=== PATIENT | female | born 1995 | race Caucasian/White ===

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

== ENCOUNTER 2017-01-02 23:57 | Outpatient (CLI) | payer OTHER ==
[~2017-01-02] VITALS: Ht 154.9 cm; Wt 66.1 kg
[2017-01-03 00:31] VITALS: BP 121/70; PULSE 89; RESP 18
[2017-01-03] MEDS ORDERED: PRENAT PO (00:55)
--- NOTE | 2017-01-03 03:59 | RADRPT ---
PROCEDURE: US OB ESTIMATED WEIGHT. CLINICAL INDICATION: Pain. TECHNIQUE: Multiple sonographic images of the pelvis were obtained. The images were reviewed on a PACS workstation. COMPARISON: No pertinent prior examinations were submitted for comparison. FINDINGS: There is a single live intrauterine gestation. Cardiac activity is present with 154 beats per minut e. There is a vertex presentation. Measurements were made in order to determine age. The results are as follows: BPD =9.5 cm = 38 weeks 6 days HC =33.9 cm = 38 weeks 6 days AC =36 cm = 39 weeks 6 days FL =7.5 cm = 38 weeks 3 days Estimated gestational age of approximately 39 weeks 0 days. The estimated date of delivery is 01/10/2017. The EFW = 3761 g . 83% This examination was not performed for anatomy. The placenta is anterior. There is no evidence for an abruption or placenta previa. IMPRESSION: EFW = 3761 g. RPTAT: HIKT .Dirk Taylor MD, MD Date Time Electronically viewed and signed by .Dirk Taylor MD, on 01/03/2017 03:58 .T/
--- NOTE | 2017-01-03 03:59 | RADRPT ---
PROCEDURE: US OB biophysical profile. CLINICAL INDICATION: decreased movements TECHNIQUE: Multiple sonographic images of the pelvis were obtained. The images were reviewed on a PACS workstation. COMPARISON: No pertinent prior examinations were submitted for comparison. FINDINGS: There is a single viable intrauterine gestation. Cardiac activity is present with 159 beats per min [place]. There is a vertex presentation. The placenta is anterior. There is a normal amount of amniotic fluid with an REJI = 12.6 cm. Biophysical profile: movement 2/2 tone 2/2. breathing 2/2 REJI 2/2 Total 12/18 IMPRESSION: Normal biophysical profile. RPTAT: HIKT . .Dirk Taylor MD, Date Time Electronically viewed and signed by .Dirk Taylor MD, on 01/03/2017 03:59 .T/
--- NOTE | 2017-01-03 06:39 | PN ---
Triage Information Date/Time January 02 2017 Reason for visit: Uterine contractions Weeks of Gestation 38 weeks and 4 day /Para 2 para1 Diabetes: none Hypertention: none Additional information 21-year-old with IUP at 38 weeks and 4 days with complaint uterine contractions. She denies any leaking of fluid, vaginal bleeding or decreased movement. Objective Vital Signs Date Time Temp Pulse Resp B/P Pulse Ox O2 Delivery O2 Flow Rate FiO2 01/03/17 00:31 97.9 89 18 121/70 Room Air Heart Rate: 130's Contractions: 6-10 Minutes Apart Exam General appearance: Alert and oriented 4. Patient does not appear to be in any acute distress. Abdomen: Soft, gravid, fundal height consistent with gestational age. Nontender nose, no rebound tenderness, no guarding, NST: Category 1 Sterile vaginal examination 2-3/60/-3, vertex Repeat examination after 45 hours still shows 3/70/-3 Minimal cervical change REJI: 12.6 normal EFW: 83% Results/Medications Imaging Results PROCEDURE: US OB biophysical profile. CLINICAL INDICATION: decreased movements TECHNIQUE: Multiple sonographic images of the pelvis were obtained. The images were reviewed on a PACS workstation. COMPARISON: No pertinent prior examinations were submitted for comparison. FINDINGS: There is a single viable intrauterine gestation. Cardiac activity is present with 159 beats per minute. There is a vertex presentation. The placenta is anterior. There is a normal amount of amniotic fluid with an REJI = 12.6 cm. Biophysical profile: movement 2/2 tone 2/2. breathing 2/2 REJI 2/2 Total 12/18 IMPRESSION: Normal biophysical profile. RPTAT: HIKT . PROCEDURE: US OB ESTIMATED WEIGHT. CLINICAL INDICATION: Pain. TECHNIQUE: Multiple sonographic images of the pelvis were obtained. The images were reviewed on a PACS workstation. COMPARISON: No pertinent prior examinations were submitted for comparison. FINDINGS: There is a single live intrauterine gestation. Cardiac activity is present with 154 beats per minute. There is a vertex presentation. Measurements were made in order to determine age. The results are as follows: BPD = 9.5 cm = 38 weeks 6 days HC = 33.9 cm = 38 weeks 6 days AC = 36 cm = 39 weeks 6 days FL = 7.5 cm = 38 weeks 3 days Estimated gestational age of approximately 39 weeks 0 days. The estimated date of delivery is 01/10/2017. The EFW = 3761 g . 83% This examination was not performed for anatomy. The placenta is anterior. There is no evidence for an abruption or placenta previa. IMPRESSION: EFW = 3761 g. RPTAT: HIKT Disposition: Discharge Assessment/Plan IUP at 38 weeks and 4 days Uterine contraction Minimal cervical change noted Patient was comfortable after observation False labor versus early labor heart rate reassuring Patient will be discharged home with a strict labor precaution and kick count If contractions return and progressively increase in intensity return to triage back kick count and follow-up with OB office within 24 hours recommended Patient verbalized understanding. All questions were answered. JUMA PATEL MD Jan 03, 2017 06:39
--- NOTE | 2017-01-03 07:41 | TRIAGE ---
OB Triage Datetime Report Generated by CPN: 01/03/2017 07:41 Datetime: 01/03/2017 01:30 Stage of : OB Triage Datetime: 01/03/2017 01:08 Labor Evaluation Frequency: 5-8 Monitor Mode: External Duration (sec)2399: 60 Quality: Moderate Pattern: Normal: <= 5 Contractions in 10 Minutes Resting Tone [place]: Relaxed Heart Rate FHR Baseline Rate: 120 Monitor Mode: External US FHR Baseline Changes: No Baseline Change Variability: Moderate 6-25 bpm Accelerations: 15X15 Decelerations: None Category: Category I Vaginal Exam Dilatation (cms): 2.5 Effacement (%): 60 Station: -3 Exam By: Danae Raphael Membrane Status: Intact Vaginal Bleeding: None Cervix, Consistency: Soft Cervix, Position: Posterior Presentation 'A': Cephalic Datetime: 01/03/2017 00:20 Time of Arrival: 01/02/2017 23:52 EGA: 38.3 Arrived By: Wheelchair Arrived From: Home Chief Complaint: w/ c/o ucs. Denies hx problems this Movement: Present Contractions: Irregular Time Contractions Began: 01/02/2017 19:00 Contractions: q3-5 Rupture of Membranes: Denies Vaginal Bleeding: None Vaginal Discharge: Denies Recent Sexual Intercouse: Denies Abdominal Trauma: Not Applicable Patient Complaints: Contractions Time Provider Notified: 01/03/2017 01:30 Provider Notified: Dr Duque Initial Plan: EFM, SVE Datetime: 01/03/2017 00:18 Stage of : OB Triage Maternal Assessment Level of Consciousness: Fully Conscious Headache: Denies Blurred Vision: No Respiratory Effort: Unlabored Nausea/Vomiting: Denies RUQ Epigastric Pain: Denies Facial Edema: None Labor Evaluation Frequency: placed Monitor Mode: External Resting Tone [place]: Relaxed Heart Rate FHR Baseline Rate: 125 Monitor Mode: External US Category: Category I Pain Assessment Pain Scale: 7 Pain Presence: Intermittent Pain Type: Contraction Pain Location: Abdomen Datetime: 12/27/2016 06:12 Labor Evaluation Frequency: 3-10 Monitor Mode: External Duration (sec)2399: 50-90 Pattern: Normal: <= 5 Contractions in 10 Minutes Resting Tone [place]: Relaxed Heart Rate FHR Baseline Rate: 115 Monitor Mode: External US Variability: Moderate 6-25 bpm Accelerations: 15X15 Decelerations: None Category: Category I Datetime: 12/27/2016 05:30 Labor Evaluation Frequency: Irregular Monitor Mode: External Pattern: Normal: <= 5 Contractions in 10 Minutes Resting Tone [place]: Relaxed Heart Rate FHR Baseline Rate: 110 Monitor Mode: External US Variability: Moderate 6-25 bpm Accelerations: 15X15 Decelerations: None Category: Category I Datetime: 12/27/2016 04:30 Labor Evaluation Frequency: 2-9 Monitor Mode: External Duration (sec)2399: 50-80 Pattern: Normal: <= 5 Contractions in 10 Minutes Resting Tone [place]: Relaxed Heart Rate FHR Baseline Rate: 120 Monitor Mode: External US Variability: Moderate 6-25 bpm Accelerations: 15X15 Decelerations: None Category: Category I Datetime: 12/26/2016 23:21 EGA: 37.3 Datetime: 12/26/2016 23:15 Fall Risk Assessment Fall Score: 0 Fall Risk Score Definition: No Risk: No action required
== END 2017-01-03 05:00 | disposition home or self-care (01) ==
LOC: OBT 23:57 → L-D 01-03 → OBT 01-03 05:00
PROVIDERS: ATTEND Obstetrics & Gynecology
DX: O62.9 Abnormality of forces of labor, unspecified (principal); Z3A.38 38 weeks gestation of pregnancy
CPT/HCPCS: 76815; 76818; Z7500; G0463

== ENCOUNTER 2017-01-10 11:10 | Inpatient (IN) | payer OTHER ==
[~2017-01-10] VITALS: Ht 154.9 cm; Wt 66.4 kg
[~2017-01-10 11:10] MED LIST changes: -IBUP-1542 PO; -NO MEDS; +PRENAT PO
[2017-01-10 11:57] VITALS: Ht 154.9 cm; Wt 66.4 kg
[2017-01-10 11:58] VITALS: BP 122/68; PULSE 69
[2017-01-10] MEDS ORDERED: CARBOPROST 250 MCG INJ IM PRN ×2 (12:30→22:00)
[2017-01-10] MEDS ORDERED: OXYTOCIN 30 UNITS/LR 500 ML IV PRN ×2 (12:30→22:00)
[2017-01-10] MEDS ORDERED: MISOPROSTOL 200 MCG TAB PR PRN ×2 (12:30→22:00)
[2017-01-10] MEDS ORDERED: LACTATED RINGER'S 1,000 ML IV PRN (12:30)
[2017-01-10] MEDS ORDERED: METHYLERGONOVINE 0.2 MG INJ IM PRN ×2 (12:30→22:00)
[2017-01-10] MEDS ORDERED: BUTORPHANOL 2 MG INJ IV PRN ×2 (12:30)
[2017-01-10] MEDS ORDERED: LIDOCAINE 1% (MPF) 30 ML INJ INJ PRN (12:30)
[2017-01-10] MEDS: LACTATED RINGER'S 1,000 ML IV SCH ×2 (13:26→15:55)
[2017-01-10] MEDS ORDERED: OXYTOCIN 30 UNITS/LR 500 ML IV SCH (13:30)
[2017-01-10 13:45] LABS: ABNORMAL IP MESSAGE 1; BASOPHILS % 0.3 % (0.0-2.0); EOSINOPHILS % 0.4 % (0.0-7.0); HEMATOCRIT 28.5 % (37.0-47.0); HEMOGLOBIN 8.3 g/dl (12.0-16.0); LYMPHOCYTES # 2.7 10^3/ul (0.8-2.9); LYMPHOCYTES % 25.5 % (18.0-55.0); MEAN CORPUSCULAR HEMOGLOBIN 18.1 pg (29.0-33.0); MEAN CORPUSCULAR HGB CONC 29.1 g/dl (32.0-37.0); MEAN CORPUSCULAR VOLUME 62.1 fl (72.0-104.0); MONOCYTE # 0.5 10^3/ul (0.3-0.9); MONOCYTES % 5.1 % (0.0-13.0); NEUTROPHILS % 68.1 % (30.0-74.0); NUCLEATED RED BLOOD CELLS% 0.2 /100WBC (0.0-0.0); PLATELET COUNT 129 10^3/UL (140-415); RED BLOOD COUNT 4.59 10^6/ul (4.20-5.40); RED CELL DISTRIBUTION WIDTH 20.2 % (11.5-14.5); WHITE BLOOD COUNT 10.4 10^3/ul (4.8-10.8)
[2017-01-10 14:07] LABS: POSITIVE DIFF @See below
[2017-01-10 14:08] LABS: INR 0.95; PROTIME 12.7 Sec (12.2-14.2)
[2017-01-10 14:09] LABS: PARTIAL THROMBOPLASTIN TIME 28.1 Sec (25.0-35.0)
[2017-01-10] MEDS ORDERED: FENTAnyl 2MCG/ML-ROPIV 0.2% 100 ML ONE (16:39)
--- NOTE | 2017-01-10 17:27 | HP ---
Date/Time of Note Date/Time of Note DATE: 01/10/17 TIME: 17:26 OB - History Hx of Present Free Text/Dictation at term in labor Care: Good Care Ultrasounds: Normal mid trimester US Obstetrical Complications: None Medical Complications: None Past Family/Social History * Past Medical, Surgical, Family and Obstetric Histories reviewed from chart. OB Admission Exam Vital Signs Vital Signs Vital Signs Date Time Temp Pulse Resp B/P Pulse Ox O2 Delivery O2 Flow Rate FiO2 01/10/17 11:58 98.3 69 122/68 Physical Exam HEENT: WNL Heart: Rhythm Normal Lungs: Clear, Equal Abdomen: WNL Extremities: Normal Reflexes: Normal Cervical Dilatation: 10cm Effacement: 100% Membranes: Ruptured Amniotic Fluid: Clear Heart Rate: 130's Accelerations: No Accelerations Decelerations: No Decelerations Intensity: Moderate Last 72 hours Lab Results CBC & BMP 01/10/17 12:55 OB Assessment/Plan Reason for admission: active labor Plan: Expectant Management MARIVEL PETER MD Jan 10, 2017 17:27
--- NOTE | 2017-01-10 17:28 | LDN ---
Date/Time of Note Date/Time of Note DATE: 01/10/17 TIME: 17:27 Delivery Summary term preg nsd Placenta Delivered: Spontaneously Meconium: none Anesthesia type: Epidural Estimated blood loss: 350 Sponge & Needle done & correct: Yes All needle counts correct: Yes Any foreign bodies felt in the: No Problems: MARIVEL PETER MD Jan 10, 2017 17:28
[2017-01-10] MEDS ORDERED: OXYTOCIN 30 UNITS/LR 500 ML IVPB ONE (18:00)
[2017-01-10] MEDS ORDERED: IBUPROFEN 600 MG TAB PO STA (18:03)
[2017-01-10] MEDS ORDERED: IBUPROFEN 600 MG TAB ONE (18:20)
[2017-01-10 20:20] VITALS: BP 107/64; PULSE 62; RESP 17
[2017-01-10] MEDS: LACTATED RINGER'S 1,000 ML IV* SCH (21:49)
[2017-01-10] MEDS ORDERED: LANOLIN 7 GM TUBE TOP PRN (22:00)
[2017-01-10] MEDS ORDERED: ACETAMINOPHEN 325 MG TAB PO PRN (22:00)
[2017-01-10] MEDS ORDERED: SENNA/DOCUSATE NA (8.6MG/50MG) TAB PO PRN (22:00)
[2017-01-10] MEDS ORDERED: ZOLPIDEM 5 MG TAB PO PRN (22:00)
[2017-01-10] MEDS ORDERED: WITCH HAZEL/GLYCERIN PAD PR PRN (22:00)
[2017-01-10] MEDS ORDERED: DIPHENHYDRAMINE 25 MG CAP PO PRN (22:00)
[2017-01-10] MEDS ORDERED: HYDROCODONE/APAP (5/325) TAB PO PRN (22:00)
[2017-01-10] MEDS ORDERED: BENZOCAINE 20% 56 ML SPRAY TOP PRN (22:00)
[2017-01-10] MEDS ORDERED: MAGNESIUM HYDROXIDE 30ML CUP PO PRN (22:00)
[2017-01-10] MEDS: OXYTOCIN 30 UNITS/LR 500 ML IV SCH (23:49)
[2017-01-10 23:51] VITALS: BP 105/51; PULSE 63; RESP 19
[2017-01-10] MEDS: IBUPROFEN 800 MG TAB PO SCH (23:51)
[2017-01-11] MEDS: OXYTOCIN 30 UNITS/LR 500 ML IV SCH (03:28)
[2017-01-11 04:00] VITALS: BP 110/53; PULSE 73; RESP 19
[2017-01-11] MEDS: IBUPROFEN 800 MG TAB PO SCH ×4 (05:41→23:40)
[2017-01-11] MEDS: LACTATED RINGER'S 1,000 ML IV* SCH ×2 (05:49→13:49)
[2017-01-11 08:00] VITALS: BP 99/54; PULSE 71; RESP 18
[2017-01-11 09:14] LABS: BASOPHIL # 0.1 10^3/ul (0.0-0.1); BASOPHILS % 0.3 % (0.0-2.0); EOSINOPHILS # 0.1 10^3/ul (0.0-0.5); EOSINOPHILS % 0.4 % (0.0-7.0); HEMATOCRIT 25.8 % (37.0-47.0); HEMOGLOBIN 7.5 g/dl (12.0-16.0); LYMPHOCYTES # 4.5 10^3/ul (0.8-2.9); MEAN CORPUSCULAR HEMOGLOBIN 18.2 pg (29.0-33.0); MEAN CORPUSCULAR HGB CONC 29.1 g/dl (32.0-37.0); MEAN CORPUSCULAR VOLUME 62.8 fl (72.0-104.0); MONOCYTES % 5.7 % (0.0-13.0); NEUTROPHILS % 66.9 % (30.0-74.0); NUCLEATED RED BLOOD CELLS% 0.2 /100WBC (0.0-0.0); PLATELET COUNT 156 10^3/UL (140-415); RED BLOOD COUNT 4.11 10^6/ul (4.20-5.40); RED CELL DISTRIBUTION WIDTH 20.4 % (11.5-14.5); WHITE BLOOD COUNT 17.3 10^3/ul (4.8-10.8)
[2017-01-11] MEDS: FERROUS GLUCONATE (EC) 325 MG TAB PO SCH ×2 (13:17→21:12)
[2017-01-11 16:00] VITALS: BP 101/52; PULSE 62; RESP 18
[2017-01-11 20:00] VITALS: BP 102/52; PULSE 79; RESP 20
--- NOTE | 2017-01-11 23:39 | DS ---
Date/Time of Note Date/Time of Note DATE: 01/11/17 TIME: 23:39 Discharge Summary Admission/Discharge Info Admit Date/Time Jan 10, 2017 at 12:10 Discharge Date/Time Discharge Diagnosis TERM PREG Patient Condition: Good Hospital Course UNREMARKABLE Home Meds Reported Medications Multivit/Min/Fol Ac/Iron/Pren* ( S*) 1 Tab Tab, 1 TAB PO DAILY, TAB 01/03/17 Primary Care Provider Not On Staff Doctor Pending Labs Laboratory Tests Test 01/11/17 08:15 White Blood Count 17.310^3/ul (4.8-10.8) Red Blood Count 4.1110^6/ul (4.20-5.40) Hemoglobin 7.5g/dl (12.0-16.0) Hematocrit 25.8% (37.0-47.0) Mean Corpuscular Volume 62.8fl (72.0-104.0) Mean Corpuscular Hemoglobin 18.2pg (29.0-33.0) Mean Corpuscular Hemoglobin Concent 29.1g/dl (32.0-37.0) Red Cell Distribution Width 20.4% (11.5-14.5) Platelet Count 99630^3/UL (140-415) Mean Platelet Volume fl (7.4-10.4) Neutrophils % 66.9% (30.0-74.0) Lymphocytes % 26.0% (18.0-55.0) Monocytes % 5.7% (0.0-13.0) Eosinophils % 0.4% (0.0-7.0) Basophils % 0.3% (0.0-2.0) Nucleated Red Blood Cells % 0.2/100WBC (0.0-0.0) Neutrophils # (Manual) 11.610^3/ul (1.7-7.5) Lymphocytes # 4.510^3/ul (0.8-2.9) Monocytes # 1.010^3/ul (0.3-0.9) Eosinophils # 0.110^3/ul (0.0-0.5) Basophils # 0.110^3/ul (0.0-0.1) Nucleated Red Blood Cells # 0.010^3/ul (0.0-0.0) MARIVEL PETER MD Jan 11, 2017 23:39
[2017-01-12] MEDS: IBUPROFEN 800 MG TAB PO SCH ×2 (05:28→12:59)
[2017-01-12 08:20] VITALS: BP 110/56; PULSE 75; RESP 19
[2017-01-12] MEDS ORDERED: VARICELLA VACCINE LIVE/PF 1,350 UNIT/0.5 ML ML SC* ONE (09:00)
[2017-01-12] MEDS ORDERED: DIPHTH/TET/ACEL PERTUSS (ADULT) 0.5 ML VIAL IM* ONE (09:00)
[2017-01-12] MEDS ORDERED: MEASLES,MUMPS,RUBELLA VACCINE INJ SC* ONE (09:00)
[2017-01-12] MEDS: FERROUS GLUCONATE (EC) 325 MG TAB PO SCH ×2 (09:43→12:59)
--- NOTE | 2017-01-12 12:57 | DS ---
Date/Time of Note Date/Time of Note DATE: 01/12/17 TIME: 12:54 Obstetrical Discharge Record Final Diagnosis Final Diagnosis: Term delivered Vaginal Delivery Obstetrical Delivery: Spontaneous Complications Complications: less than 7 at 5 mins Condition on Discharge Physical Assessment Voiding: Yes Bowel Movement: Yes Breast: Soft, non-tender Fundus: Firm Abdomen and Incision: Post C section day 2 Doing Well Afebrile Ambulatory Chest Clear Breasts are soft , Nipples are intact Abdomen is soft Fundus is firm Moderate amount of [place]chia Incision is clean ,No evidence of infection No calf tenderness No ankle edema New born is doing well, Breast feeding Current Medications Medications (Trade) Dose Ordered Sig/Rosy Route PRN Reason Start Time Stop Time Status Last Admin Dose Admin Lactated Ringer's (Lr) 1,000 ml @ 125 mls/hr Q8H IV 01/10/17 12:11 01/10/17 21:51 DC 01/10/17 15:55 Butorphanol Tartrate (Stadol) 1 mg Q2H PRN IV PAIN 01/10/17 12:30 01/10/17 21:51 DC Butorphanol Tartrate (Stadol) 2 mg Q2H PRN IV PAIN 01/10/17 12:30 01/10/17 21:51 DC 01/10/17 13:42 Lidocaine 30 ml 30 ml ONCE PRN INJ EPISIOTOMY/TEARING 01/10/17 12:30 01/10/17 21:51 DC Lactated Ringer's 1,000 ml @ 2,000 mls/hr Q30M PRN IV PRE-EPIDURAL BOLUS 01/10/17 12:30 01/10/17 21:51 DC 01/10/17 15:59 Oxytocin/Lactated Ringer's 500 ml @ 0 mls/hr ONCE PRN IV For Hemorrhage Management 01/10/17 12:30 01/10/17 21:51 DC Methylergonovine Maleate (Methergine) 0.2 mg ONCE PRN IM VAGINAL BLEEDING 01/10/17 12:30 01/10/17 21:51 DC Carboprost Tromethamine (Hemabate) 250 mcg ONCE PRN IM VAGINAL BLEEDING 01/10/17 12:30 01/10/17 21:51 DC Misoprostol 1000 mcg 1,000 mcg ONCE PRN MI VAGINAL BLEEDING 01/10/17 12:30 01/10/17 21:51 DC Oxytocin/Lactated Ringer's 500 ml @ 0 mls/hr TITRATE IV 01/10/17 13:30 01/10/17 21:51 DC 01/10/17 13:44 Fentanyl/ Ropivacaine 100 ml @ ud STK-MED ONCE .ROUTE 01/10/17 16:39 01/10/17 16:40 DC Ibuprofen 600 mg 600 mg ONCE STAT PO 01/10/17 18:03 01/10/17 18:26 DC 01/10/17 18:26 Oxytocin/Lactated Ringer's 500 ml @ 125 mls/hr ONCE ONCE IVPB 01/10/17 18:00 01/10/17 21:51 DC 01/10/17 18:28 Ibuprofen 600 mg 600 mg STK-MED ONCE .ROUTE 01/10/17 18:20 01/10/17 18:21 DC Oxytocin/Lactated Ringer's 500 ml @ 125 mls/hr Q4H IV 01/10/17 21:49 01/11/17 05:48 DC 01/11/17 03:28 Lactated Ringer's (Lr) 1,000 ml @ 125 mls/hr Q8H IV* 01/10/17 21:49 01/11/17 16:36 DC Ibuprofen (Motrin) 800 mg Q6 PO 01/11/17 00:00 01/12/17 05:28 Acetaminophen/ Hydrocodone Bitart ([place] (5/325)) 2 tab Q4H PRN PO PAIN LEVEL 6-10 01/10/17 22:00 Diphenhydramine HCl (Benadryl) 25 mg Q6H PRN PO PRURITUS 01/10/17 22:00 Zolpidem Tartrate (Ambien) 10 mg QHS PRN PO INSOMNIA 01/10/17 22:00 Senna/Docusate Sodium (Senokot-S) 1 tab BID PRN PO CONSTIPATION 01/10/17 22:00 Magnesium Hydroxide (Milk Of Mag) 30 ml Q12H PRN PO CONSTIPATION 01/10/17 22:00 Witch Mayte/ Glycerin (Tucks Pads) 1 pad BEDSIDE MEDICATION PRN MI HEMORRHOID/EPISIOTMY PAIN 01/10/17 22:00 01/10/17 23:43 Benzocaine (Dermoplast [place]) 1 spray BEDSIDE MEDICATION PRN TOP HEMORRHOID/EPISIOTMY PAIN 01/10/17 22:00 01/10/17 23:43 Lanolin (Avi-P-Leqjot) 1 applic BEDSIDE MEDICATION PRN TOP BEDSIDE FOR GRIFFIN TO NIPPLES 01/10/17 22:00 01/10/17 23:44 Measles/Mumps/ Rubella Vaccine Live (Mmr Ii Vaccine) 0.5 ml ONCE ONCE SC* 01/12/17 09:00 01/12/17 09:01 DC Diphtheria/ Tetanus/Acell Pertussis (Adacel) 0.5 ml ONCE ONCE IM* 01/12/17 09:00 01/12/17 09:01 DC Varicella Virus Vaccine Live (Varivax Vaccine With Diluent) 1,350 unit ONCE ONCE SC* 01/12/17 09:00 01/12/17 09:01 DC Acetaminophen 650 mg 650 mg Q4H PRN PO ELEVATED TEMPERATURE 01/10/17 22:00 Oxytocin/Lactated Ringer's 500 ml @ 0 mls/hr ONCE PRN IV For Hemorrhage Management 01/10/17 22:00 Methylergonovine Maleate (Methergine) 0.2 mg ONCE PRN IM VAGINAL BLEEDING 01/10/17 22:00 Carboprost Tromethamine (Hemabate) 250 mcg ONCE PRN IM VAGINAL BLEEDING 01/10/17 22:00 Misoprostol (Cytotec) 1,000 mcg ONCE PRN MI VAGINAL BLEEDING 01/10/17 22:00 Ferrous Gluconate (Fergon) 325 mg TID PO 01/11/17 13:00 01/12/17 09:43 New born is doing well, Breast feeding Calf Tenderness: No Patient Condition: Good LEELEE CORONA MD Jan 12, 2017 12:57 New born is doing well, Breast feeding Calf Tenderness: No Patient Condition: Good LEELEE CORONA MD Jan 12, 2017 12:57
== END 2017-01-12 16:10 | disposition home or self-care (01) | DRG 775 ==
LOC: OBT 11:10 → L-D 11:10 → OBT 12:10 → PP1 20:14
PROVIDERS: ADMIT Obstetrics & Gynecology; ATTEND Obstetrics & Gynecology
PROC: 10E0XZZ Delivery of Products of Conception, External Approach (ICD-10-PCS; principal; 2017-01-10)
PROC: 3E033VJ Introduction of Other Hormone into Peripheral Vein, Percutaneous Approach (ICD-10-PCS; 2017-01-10)
DX: O80 Encounter for full-term uncomplicated delivery (principal); Z37.0 Single live birth; Z3A.39 39 weeks gestation of pregnancy
CPT/HCPCS: 62319; 85025; 85610; 85730; 86592; 86900; 86901; 87340; 90715; 90716; G0463; J0595; J2590; J3010; J7120

== ENCOUNTER 2018-08-24 16:03 | Outpatient (CLI) | payer OTHER ==
[~2018-08-24] VITALS: Ht 154.9 cm; Wt 60.7 kg
[2018-08-24 16:26] VITALS: Ht 154.9 cm; Wt 60.7 kg
[2018-08-24 16:28] VITALS: BP 98/50; PULSE 80; RESP 18
--- NOTE | 2018-08-24 18:11 | PN ---
Triage Information Date/Time Reason for visit: Uterine contractions Weeks of Gestation 26+ /Para 3/2 Diabetes: none Hypertention: none Objective Vital Signs Date Temp Pulse Resp B/P (MAP) Pulse Ox O2 O2 Flow FiO2 Time Delivery Rate 08/24/18 98.0 80 18 98/50 (66) Room Air 16:28 Heart Rate: 140's Contractions: None Results/Medications Results 24 hrs Laboratory Tests Test 08/24/18 17:10 Urine Color YELLOW Urine Clarity SLIGHTLY CLOUDY A Urine pH 7.0 Urine Specific [place] 1.014 Urine Ketones NEGATIVE Urine Nitrite NEGATIVE Urine Bilirubin NEGATIVE Urine Urobilinogen NEGATIVE Urine Leukocyte Esterase 3+ H Urine Microscopic RBC 2 Urine Microscopic WBC 30 H Urine Squamous Epithelial Cells MODERATE Urine Bacteria FEW A Urine Hemoglobin NEGATIVE Urine Glucose NEGATIVE Urine Total Protein NEGATIVE Assessment/Plan CXL WNL labs reviewed Macrobid is given for UTI Precautions discussed Questions answered Follow up with provider LOGAN GIVENS M.D. Aug 24, 2018 18:11
--- NOTE | 2018-08-24 18:17 | TRIAGE ---
OB Triage Datetime Report Generated by CPN: 08/24/2018 18:17 Datetime: 08/24/2018 16:38 Time of Arrival: 08/24/2018 16:00 EGA: 26.1 Arrived By: Ambulatory Arrived From: Home Chief Complaint: FLU LIKE SYMPTOMS SINCE LAST NIGHT AT 2300 Movement: Present Rupture of Membranes: Denies Vaginal Bleeding: None Vaginal Discharge: Denies Recent Sexual Intercouse: Denies Abdominal Trauma: Not Applicable Patient Complaints: Other Provider Notified: BRITTANI Initial Plan: EFM,LEI PETER Datetime: 08/24/2018 16:35 Maternal Assessment Level of Consciousness: Fully Conscious DTR's/Clonus: DTRs 2+; No Clonus Headache: Denies Blurred Vision: No Respiratory Effort: Unlabored; Regular Rhythm; Equal Expansion Breath Sounds, Left: Clear and Equal Breath Sounds, Right: Clear and Equal Nausea/Vomiting: Denies RUQ Epigastric Pain: Denies Facial Edema: None Temperature Route: Axillary Fall Risk Assessment History of Falling: (0) No Secondary Diagnosis: (0) No Ambulatory Aid: (0) Bedrest/Nurse Assist IV Therapy: (0) No Gait: (0) Normal/Bedrest/Immobile Mental Status: (0) Oriented to Own Ability Fall Score: 0 Fall Risk Score Definition: No Risk: No action required Datetime: 08/24/2018 16:17 Maternal Assessment Level of Consciousness: Fully Conscious DTR's/Clonus: DTRs 2+ Headache: Denies Blurred Vision: No RUQ Epigastric Pain: Denies Facial Edema: None Labor Evaluation Frequency: NONE Pattern: Normal: <= 5 Contractions in 10 Minutes Heart Rate FHR Baseline Rate: 135 Monitor Mode: External US FHR Baseline Changes: No Baseline Change Variability: Moderate 6-25 bpm Accelerations: 15X15 Decelerations: None Category: Category I Pain Assessment Pain Scale: 0 Pain Presence: None/Denies Pain Type: N/A Pain Goal: 0 Vaginal Exam Membrane Status: Intact
== END 2018-08-24 18:15 | disposition home or self-care (01) ==
LOC: OBT 16:03 → L-D 16:07 → OBT 18:15
PROVIDERS: ATTEND Obstetrics & Gynecology
DX: O23.42 Unspecified infection of urinary tract in pregnancy, second trimester (principal); O62.9 Abnormality of forces of labor, unspecified; Z3A.26 26 weeks gestation of pregnancy
CPT/HCPCS: 76817; 81001; Z7500; G0463

== ENCOUNTER 2018-11-21 00:57 | Outpatient (CLI) | payer OTHER ==
[~2018-11-21] VITALS: Ht 154.9 cm; Wt 67.2 kg
[2018-11-21 00:57] VITALS: Ht 154.9 cm; Wt 67.2 kg
[2018-11-21 01:18] VITALS: BP 106/59; PULSE 69; RESP 17
--- NOTE | 2018-11-21 03:27 | PN ---
Triage Information Date/Time November 21, 2018 Reason for visit: Uterine contractions Weeks of Gestation 38w 6d /Para 3/2 Diabetes: none Hypertention: none Additional information Pt with contraction since 1200 on 11/20. No bleeding or leaking. +FM. PMHx: umbilical hernia. PSHx: none. NKDA. Objective Vital Signs Date Temp Pulse Resp B/P (MAP) Pulse Ox O2 O2 Flow FiO2 Time Delivery Rate 11/21/18 98.4 69 17 106/59 Room Air 01:18 (75) Heart Rate: 130's Heart Rate Comments Accels to 170 BPM. No decels. Contractions: 6-10 Minutes Apart (Often longer.) Exam 60% 2-3 cm/-3 and no change after an hour of walking. Disposition: Discharge Assessment/Plan A: IUP at 38w 6d. False labor. P:D/c home. To return when the contractions are closer and stronger. Labor precautions reviewed. FADY MARTINEZ MD Nov 21, 2018 03:27
--- NOTE | 2018-11-21 04:04 | TRIAGE ---
OB Triage Datetime Report Generated by CPN: 11/21/2018 04:03 Datetime: 11/21/2018 03:21 Labor Evaluation Frequency: x2 Monitor Mode: External (Annotations: removed) Duration (sec)2399: 100-150 Pattern: Normal: <= 5 Contractions in 10 Minutes Monitor Mode: External US (Annotations: removed ) Variability: Moderate 6-25 bpm Datetime: 11/21/2018 03:09 Vaginal Exam Dilatation (cms): 2.5 Effacement (%): 60 Station: -3 Exam By: Jeanette Botello RN Vaginal Bleeding: None Cervix, Consistency: Moderate Cervix, Position: Posterior Datetime: 11/21/2018 03:08 Stage of : OB Triage Temperature Route: Oral Pain Assessment Pain Scale: 9 Pain Presence: Intermittent Pain Type: Contraction Pain Location: Abdomen Pain Relief Measures: Comfort Measures Datetime: 11/21/2018 03:07 Monitor Mode: External (Annotations: reapplied) Quality: Mild Resting Tone [place]: Relaxed Monitor Mode: External US (Annotations: reapplied) Comments: Patient states she feels active movement Datetime: 11/21/2018 02:05 Monitor Mode: External (Annotations: removed) Monitor Mode: External US (Annotations: removed) Pain Assessment Pain Scale: 8 Pain Presence: Intermittent Pain Type: Contraction Pain Location: Abdomen Pain Relief Measures: Comfort Measures Datetime: 11/21/2018 02:00 Labor Evaluation Frequency: 5-10 Monitor Mode: External Duration (sec)2399: 80-110 Pattern: Normal: <= 5 Contractions in 10 Minutes Heart Rate FHR Baseline Rate: 130 Monitor Mode: External US Variability: Moderate 6-25 bpm Accelerations: 15X15 Decelerations: None Category: Category I Datetime: 11/21/2018 01:30 Vaginal Exam Dilatation (cms): 2.5 Effacement (%): 60 Station: -3 Exam By: Jeanette Botello RN Membrane Status: Intact Vaginal Bleeding: None Cervix, Consistency: Moderate Cervix, Position: Posterior Datetime: 11/21/2018 01:18 Stage of : OB Triage Assessment Type: Triage Maternal Assessment Level of Consciousness: Keenly Alert, Responsive DTR's/Clonus: DTRs 2+; No Clonus Headache: Denies Blurred Vision: No Respiratory Effort: Unlabored; Regular Rhythm; Equal Expansion Breath Sounds, Left: Clear and Equal Breath Sounds, Right: Clear and Equal RUQ Epigastric Pain: Denies Lower Extremities Edema: None Degree: None Upper Extremities Edema: None Degree: None Facial Edema: None Temperature Route: Oral Fall Risk Assessment History of Falling: (0) No Secondary Diagnosis: (0) No Ambulatory Aid: (0) Bedrest/Nurse Assist IV Therapy: (0) No Gait: (0) Normal/Bedrest/Immobile Mental Status: (0) Oriented to Own Ability Fall Score: 0 Fall Risk Score Definition: No Risk: No action required Comments: Patient states she feels active movement Pain Assessment Pain Scale: 8 Pain Presence: Intermittent Pain Type: Contraction Pain Location: Abdomen Pain Relief Measures: Comfort Measures Datetime: 11/21/2018 01:11 Monitor Mode: External (Annotations: applied) Quality: Mild Resting Tone [place]: Relaxed Monitor Mode: External US (Annotations: applied) Datetime: 11/21/2018 00:57 Time of Arrival: 11/21/2018 00:57 EGA: 38.6 Arrived By: Ambulatory Arrived From: Home Chief Complaint: Contractions Q5-mins since 11/20/18 at 1200 Movement: Present Contractions: Irregular Time Contractions Began: 11/20/2018 12:00 Rupture of Membranes: Denies Vaginal Bleeding: None Vaginal Discharge: Denies Recent Sexual Intercouse: Denies Abdominal Trauma: Not Applicable Patient Complaints: Contractions; Nausea; Other Additional Patient Complaints: diarrhea, hx of umbilical hernia Time Provider Notified: 11/21/2018 01:40 Provider Notified: Dr. Lugo Initial Plan: EFM x2, SVE Datetime: 08/24/2018 16:38 EGA: 26.1 Datetime: 08/24/2018 16:35 Fall Score: 0 Fall Risk Score Definition: No Risk: No action required
== END 2018-11-21 03:43 | disposition home or self-care (01) ==
LOC: OBT 00:57 → L-D 00:57 → OBT 03:43
PROVIDERS: ATTEND Obstetrics & Gynecology
DX: O62.9 Abnormality of forces of labor, unspecified (principal); O26.893 Other specified pregnancy related conditions, third trimester; R19.7 Diarrhea, unspecified; Z3A.38 38 weeks gestation of pregnancy
CPT/HCPCS: G0463

== ENCOUNTER 2018-11-24 18:37 | Inpatient (IN) | payer OTHER ==
[~2018-11-24] VITALS: Ht 154.9 cm; Wt 67.0 kg
[2018-11-24 20:00] VITALS: Ht 154.9 cm; Wt 67.0 kg
--- NOTE | 2018-11-24 20:23 | TRIAGE ---
OB Triage Datetime Report Generated by CPN: 11/24/2018 20:23 Datetime: 11/24/2018 19:56 Vaginal Exam Dilatation (cms): 2.5 Effacement (%): 50 Station: -2 Exam By: ZEINAB MCCLELLAND Vaginal Bleeding: None Cervix, Consistency: Soft Cervix, Position: Midposition Presentation 'A': Cephalic Datetime: 11/24/2018 18:45 Stage of : OB Triage Assessment Type: Triage Maternal Assessment Level of Consciousness: Keenly Alert, Responsive DTR's/Clonus: DTRs 2+; No Clonus Headache: Denies Blurred Vision: No Respiratory Effort: Unlabored; Regular Rhythm; Equal Expansion Breath Sounds, Left: Clear and Equal Breath Sounds, Right: Clear and Equal Nausea/Vomiting: Denies RUQ Epigastric Pain: Denies Lower Extremities Edema: None Degree: None Upper Extremities Edema: None Degree: None Facial Edema: None Fall Risk Assessment History of Falling: (0) No Secondary Diagnosis: (0) No Ambulatory Aid: (0) Bedrest/Nurse Assist IV Therapy: (0) No Gait: (0) Normal/Bedrest/Immobile Mental Status: (0) Oriented to Own Ability Fall Score: 0 Fall Risk Score Definition: No Risk: No action required Datetime: 11/24/2018 18:22 Time of Arrival: 11/24/2018 18:22 EGA: 39.2 Arrived By: Ambulatory Arrived From: Home Chief Complaint: PT CAME IN C/O LOWER ABD PRESSURE AND HERNIA PAIN Movement: Present Contractions: Irregular Rupture of Membranes: Denies Vaginal Discharge: Denies Recent Sexual Intercouse: Denies Abdominal Trauma: Not Applicable Additional Patient Complaints: NONE Time Provider Notified: 11/24/2018 19:57 Provider Notified: BRITTANI Initial Plan: MONITOR, VE Datetime: 11/21/2018 01:18 Fall Score: 0 Fall Risk Score Definition: No Risk: No action required Datetime: 11/21/2018 00:57 EGA: 38.6 Datetime: 08/24/2018 16:38 EGA: 26.1 Datetime: 08/24/2018 16:35 Fall Score: 0 Fall Risk Score Definition: No Risk: No action required
[2018-11-24] MEDS ORDERED: LACTATED RINGER'S 1,000 ML IV PRN (21:29)
[2018-11-24] MEDS ORDERED: MISOPROSTOL 200 MCG TAB PR PRN (21:30)
[2018-11-24] MEDS ORDERED: OXYTOCIN 30 UNITS/LR 500 ML IV PRN (21:30)
[2018-11-24] MEDS ORDERED: CARBOPROST 250 MCG INJ IM PRN (21:30)
[2018-11-24] MEDS ORDERED: METHYLERGONOVINE 0.2 MG INJ IM PRN (21:30)
[2018-11-24] MEDS ORDERED: LIDOCAINE 1% (MPF) 30 ML INJ INJ PRN (21:30)
[2018-11-24] MEDS ORDERED: IBUPROFEN 600 MG TAB PO PRN (21:30)
[2018-11-24] MEDS ORDERED: OXYTOCIN 30 UNITS/LR 500 ML IV SCH ×2 (21:30)
[2018-11-24] MEDS ORDERED: BUTORPHANOL 2 MG INJ IV PRN ×2 (21:30)
[2018-11-24] MEDS: LACTATED RINGER'S 1,000 ML IV SCH (21:43)
[2018-11-25] MEDS ORDERED: ACETAMINOPHEN 325 MG TAB PO PRN ×2 (01:00→16:00)
[2018-11-25] MEDS: LACTATED RINGER'S 1,000 ML IV SCH (04:14)
[2018-11-25] MEDS ORDERED: OXYTOCIN 30 UNITS/LR 500 ML IV SCH ×2 (08:00→15:35)
[2018-11-25] MEDS ORDERED: FENTAnyl 2MCG/ML-ROPIV 0.2% 100 ML ONE (12:33)
--- NOTE | 2018-11-25 12:35 | PREAC ---
Date/Time of Note Date/Time of Note DATE: 11/25/18 TIME: 12:34 Anesthesia Eval and Record Evaluation Time Pre-Procedure Interview DATE: 11/25/18 TIME: 12:34 Age 23 Sex female NPO: 8 hrs Preoperative diagnosis iup at 39 weeks Planned procedure labor epidural Past Medical History Past Medical History: None Surgery & Anesthesia Issues No known issue Meds Anticoagulation: No Beta Brittney within 24 hr: No Reason Beta Brittney not given: Pt. not on B-Brittney Discontinued Reported Medications Multivit/Min/Fol Ac/Iron/Pren* ( S*) 1 Tab Tab, 1 TAB PO DAILY, TAB 01/03/17 Current Medications Lactated Ringer's 1,000 ml @ 125 mls/hr Q8H IV Last administered on 11/25/18at 04:14; Admin Dose 125 MLS/HR; Start 11/24/18 at 21:29 Butorphanol Tartrate (Stadol) 1 mg Q2H PRN IV .PAIN SCALE 1-5; Start 11/24/18 at 21:30 Butorphanol Tartrate (Stadol) 2 mg Q2H PRN IV .PAIN SCALE 6-10 Last administered on 11/25/18at 10:51; Admin Dose 2 MG; Start 11/24/18 at 21:30 Lidocaine (Xylocaine 1% (Mpf)) 30 ml ONCE PRN INJ .EPISIOTOMY; Start 11/24/18 at 21:30 Oxytocin/Lactated Ringer's 500 ml @ 500 mls/hr ONCE POST IV ; Start 11/24/18 at 21:30 Oxytocin/Lactated Ringer's 500 ml @ 125 mls/hr POST IV ; Start 11/24/18 at 21:30 Ibuprofen (Motrin) 600 mg ONCE PRN PO .PAIN 1-5; Start 11/24/18 at 21:30 Lactated Ringer's 1,000 ml @ 2,000 mls/hr Q30M PRN IV .ANESTHESIA Last administered on 11/25/18at 12:29; Admin Dose 2,000 MLS/HR; Start 11/24/18 at 21:29 Oxytocin/Lactated Ringer's 500 ml @ 0 mls/hr ONCE PRN IV .VAGINAL BLEEDING; Start 11/24/18 at 21:30 Methylergonovine Maleate (Methergine) 0.2 mg ONCE PRN IM .VAGINAL BLEEDING; Start 11/24/18 at 21:30 Carboprost Tromethamine (Hemabate) 250 mcg ONCE PRN IM .VAGINAL BLEEDING; Start 11/24/18 at 21:30 Misoprostol (Cytotec) 1,000 mcg ONCE PRN IN .VAGINAL BLEEDING; Start 11/24/18 at 21:30 Acetaminophen (Tylenol Tab) 650 mg Q6H PRN PO HEADACHE or TEMP OVER 100.4 F Last administered on 11/25/18at 00:50; Admin Dose 650 MG; Start 11/25/18 at 01:00 Oxytocin/Lactated Ringer's 500 ml @ 0 mls/hr FOR AUGMENTATION IV Last administered on 11/25/18at 08:53; Admin Dose 2 MLS/HR; Start 11/25/18 at 08:00 Meds reviewed: Yes Allergies Coded Allergies: No Known Allergy (Unverified , 11/24/18) Allergies Reviewed: Yes Labs/Studies Labs Reviewed: Reviewed by anesthesiologist Result Diagram: 11/24/18 2108 Laboratory Tests 11/24/18 21:08 Blood Bank Test 11/24/18 21:08 Antibody Screen NEGATIVE Blood Type O POSITIVE Rh Immune Globulin Candidate NO test: Positive Pre-procedure Exam Airway: Adequate mouth opening, Adequate thyromental dist Mallampati: Mallampati I Teeth: Normal Lung: Normal Heart: Normal ASA Physical Status ASA physical status: 2 Emergency: None Planned Anesthetic Neuraxial: Epidural Planned Pain Management Parenteral pain med Pre-operative Attestations Prior to commencing anesthesia and surgery, the patient was re-evaluated, there was verification of: *The patient's identity *The results of appropriate recent lab work and preoperative vital signs *The above evaluation not changing prior to induction *Anesthetic plan, risk benefits, alternative and complications discussed with patient/family; questions answered; patient/family understands, accepts and wishes to proceed. DAXA GEORGES Nov 25, 2018 12:35
[2018-11-25] MEDS ORDERED: FENTAnyl 2MCG/ML-ROPIV 0.2% 100 ML BAG EPI SCH (13:00)
[2018-11-25] MEDS ORDERED: DIPHENHYDRAMINE 50 MG INJ IV PRN (13:00)
[2018-11-25] MEDS ORDERED: NALOXONE (0.4 MG/ML) INJ IV PRN (13:00)
[2018-11-25] MEDS ORDERED: ONDANSETRON 4 MG INJ IV PRN (13:00)
--- NOTE | 2018-11-25 13:02 | HP ---
Date/Time of Note Date/Time of Note DATE: 11/25/18 TIME: 13:01 OB - History Hx of Present : 3 Para: 2 Care: Good Care Ultrasounds: Normal mid trimester US Obstetrical Complications: None Medical Complications: None Past Family/Social History * Past Medical, Surgical, Family and Obstetric Histories reviewed from chart. OB Admission Exam Physical Exam HEENT: WNL Heart: Rhythm Normal Lungs: Clear, Equal Abdomen: WNL Extremities: Normal Reflexes: Normal Cervical Dilatation: 7cm Effacement: 50% Station: -1 Membranes: Ruptured Amniotic Fluid: Thin Meconium Heart Rate: 130's Accelerations: Accelerations Present Decelerations: No Decelerations Varibility: Moderate Contractions on Admission: 6-10 Minutes Apart Intensity: Moderate Last 72 hours Lab Results CBC & BMP 11/24/18 21:08 OB Assessment/Plan Reason for admission: active labor Plan: Expectant Management MARIVEL PETER MD Nov 25, 2018 13:02
--- NOTE | 2018-11-25 14:22 | LDN ---
Date/Time of Note Date/Time of Note DATE: 11/25/18 TIME: 14:22 Delivery Summary Placenta Delivered: Spontaneously Meconium: none Episiotomy: No Perineal laceration: 1 Anesthesia type: Epidural Estimated blood loss: 300 Sponge & Needle done & correct: Yes All needle counts correct: Yes Any foreign bodies felt in the: No MARIVEL PETER MD Nov 25, 2018 14:22
[2018-11-25 15:30] VITALS: BP 115/61; RESP 18
[2018-11-25] MEDS ORDERED: LACTATED RINGER'S 1,000 ML IV* SCH (15:35)
[2018-11-25] MEDS ORDERED: CARBOPROST 250 MCG INJ IM PRN (16:00)
[2018-11-25] MEDS ORDERED: ZOLPIDEM 5 MG TAB PO PRN (16:00)
[2018-11-25] MEDS ORDERED: MISOPROSTOL 200 MCG TAB PR PRN (16:00)
[2018-11-25] MEDS ORDERED: OXYTOCIN 30 UNITS/LR 500 ML IV PRN (16:00)
[2018-11-25] MEDS ORDERED: METHYLERGONOVINE 0.2 MG INJ IM PRN (16:00)
[2018-11-25] MEDS ORDERED: MAGNESIUM HYDROXIDE 30ML CUP PO PRN (16:00)
[2018-11-25] MEDS ORDERED: DIPHENHYDRAMINE 25 MG CAP PO PRN (16:00)
[2018-11-25 16:30] VITALS: BP 122/70; RESP 18
[2018-11-25] MEDS: WITCH HAZEL/GLYCERIN PAD PR PRN (16:48)
[2018-11-25] MEDS: BENZOCAINE 20% 56 ML SPRAY TOP PRN (16:48)
[2018-11-25] MEDS: SENNA/DOCUSATE NA (8.6MG/50MG) TAB PO PRN (16:48)
[2018-11-25] MEDS: LANOLIN HPA 1 PKT TOP PRN (16:48)
[2018-11-25] MEDS: HYDROCODONE/APAP (5/325) TAB PO PRN (16:49)
[2018-11-25 19:30] VITALS: BP 100/58; PULSE 86; RESP 18
[2018-11-25] MEDS: IBUPROFEN 800 MG TAB PO SCH (20:25)
--- NOTE | 2018-11-25 23:08 | PAC ---
Date/Time of Note Date/Time of Note DATE: 11/25/18 TIME: 23:08 Post-Anesthesia Notes Post-Anesthesia Note Last documented vital signs Vital Signs Date Temp Pulse Resp B/P (MAP) Pulse Ox O2 O2 Flow FiO2 Time Delivery Rate 11/25/18 99.2 86 18 100/58 Room Air 19:30 (72) Activity: WNL Respiratory function: WNL Cardiovascular function: WNL Mental status: Baseline Pain reasonably controlled: Yes Hydration appropriate: Yes Nausea/Vomiting absent: Yes DAXA GEORGES Nov 25, 2018 23:08
[2018-11-26] VITALS: BP 104/62; PULSE 72; RESP 18
[2018-11-26 04:47] VITALS: BP 108/64; PULSE 85; RESP 18
[2018-11-26] MEDS: IBUPROFEN 800 MG TAB PO SCH ×4 (05:40→18:13)
[2018-11-26 08:00] VITALS: BP 119/67; PULSE 82; RESP 18
[2018-11-26] MEDS: SENNA/DOCUSATE NA (8.6MG/50MG) TAB PO PRN ×2 (08:52→19:40)
[2018-11-26] MEDS: HYDROCODONE/APAP (5/325) TAB PO PRN ×2 (08:53→16:47)
--- NOTE | 2018-11-26 11:59 | PN ---
Date/Time of Note Date/Time of Note DATE: 11/26/18 TIME: 11:52 OB Subjective Subjective Subjective PPD# 1 Patient is doing well. She denies nausea, vomiting, shortness of breath, chest pain, headache. She has been ambulating without difficulty, tolerating regular diet. Pain is well controlled on current medications OB Objective Objective Objective Vital Signs Date Temp Pulse Resp B/P (MAP) Pulse Ox O2 O2 Flow FiO2 Time Delivery Rate 11/26/18 98.2 82 18 119/67 Room Air 08:00 (84) General: AAO X 3, comfortable, NAD, appropriate mood and affect. ABD: +BS. Soft, non-tender. Uterus 2 cm below umbilicus Flank: No CVA tenderness (B/L) LE: Mild edema. No clubbing, cyanosis, thigh or calf tenderness (B/L). Homans 'sign is negative OB Assessment/Plan Other plan: 23 years old 3 para 3-0-0-3 s/p normal vaginal delivery. PPD#1 - AF, VSS - Baby is doing well, at bed side. She is bonding well - Contraception methods with R/B/A/FR discussed, would like to take Depo- Provera which ordered - Continue care - F/U with Dr. Coffman 2) severe anemia: Her hemoglobin on admission was 7, today is 6.4. - Blood transfusion discussed with patient. She declined - Other options including IV iron with R/benefit and alternatives discussed in detail with patient. She has agreed - Iron profile performed, low serum iron, iron saturation, ferritin and high TIBC - Ferrelcit 125 mg x3 dose before discharging home - Vitamin B12 1000 mcg IM x1 - I did discussed with patient she need to take ferrous sulfate 325 mg 3 times daily for 2 months, then daily for another 3 months. I did also recommend continue with vitamin SUNDAY CHAHAL Nov 26, 2018 11:59
[2018-11-26 12:00] VITALS: BP 111/61; PULSE 89; RESP 18
[2018-11-26] MEDS ORDERED: CYANOCOBALAMIN 1000 MCG INJ IM ONE (13:00)
[2018-11-26] MEDS: SOD FERRIC GLUC COMPLX 125 MG in SOD CHLORIDE 0.9% 100 ML IVPB SCH (13:12)
[2018-11-26 16:00] VITALS: BP 116/56; PULSE 79; RESP 16
[2018-11-26] MEDS ORDERED: MEDROXYPROGESTERONE 150 MG INJ SYG IM ONE (16:30)
[2018-11-26] MEDS: LANOLIN HPA 1 PKT TOP PRN (18:43)
[2018-11-26 19:30] VITALS: BP 125/58; PULSE 75; RESP 18
[2018-11-26] MEDS: BENZOCAINE 20% 56 ML SPRAY TOP PRN (19:40)
[2018-11-26] MEDS: WITCH HAZEL/GLYCERIN PAD PR PRN (19:40)
[2018-11-27] MEDS: IBUPROFEN 800 MG TAB PO SCH ×3 (00:39→12:20)
[2018-11-27 04:00] VITALS: BP 117/64; PULSE 85; RESP 18
[2018-11-27 08:00] VITALS: BP 118/59; PULSE 67; RESP 18
[2018-11-27] MEDS: HYDROCODONE/APAP (5/325) TAB PO PRN ×2 (08:14→17:40)
[2018-11-27] MEDS ORDERED: DIPHTH/TET/ACEL PERTUSS (ADULT) 0.5 ML VIAL IM* ONE (09:00)
[2018-11-27] MEDS ORDERED: VARICELLA VACCINE LIVE/PF 1,350 UNIT/0.5 ML ML SC* ONE (09:00)
[2018-11-27] MEDS ORDERED: MEASLES,MUMPS,RUBELLA VACCINE INJ SC* ONE (09:00)
--- NOTE | 2018-11-27 09:40 | DS ---
Date/Time of Note Date/Time of Note DATE: 11/27/18 TIME: 09:39 Discharge Summary Admission/Discharge Info Admit Date/Time Nov 24, 2018 at 20:10 Discharge Date/Time Discharge Diagnosis term Patient Condition: Stable Hospital Course unremarkable Home Meds Discontinued Reported Medications Multivit/Min/Fol Ac/Iron/Pren* ( S*) 1 Tab Tab, 1 TAB PO DAILY, TAB 01/03/17 Primary Care Provider Not On Staff Doctor Time spent on discharge: < 30 minutes Pending Labs Laboratory Tests Test 11/27/18 07:44 Hemoglobin 6.6 g/dl (12.0-16.0) Hematocrit 23.9 % (37.0-47.0) MARIVEL PETER MD Nov 27, 2018 09:40
[2018-11-27] MEDS: SOD FERRIC GLUC COMPLX 125 MG in SOD CHLORIDE 0.9% 100 ML IVPB SCH (13:32)
[2018-11-27] MEDS ORDERED: MEDROXYPROGESTERONE 150 MG INJ SYG IM ONE (15:30)
[2018-11-27 17:16] VITALS: BP 111/56; PULSE 78; RESP 18
--- NOTE | 2018-11-28 18:17 | DELSUM ---
Delivery Summary A-C Datetime Report Generated by CPN: 11/28/2018 18:16 DELIVERY PERSONNEL Income Tax Investigator: Duffy, [place] MATERNAL INFORMATION Delivery Anesthesia: Epidural Medications in Delivery: oxytocin 30 units in LR Delivery QBL (ml): 300 Placenta Cultured: No Maternal Complications: None LABOR SUMMARY EDC: 11/29/2018 00:00 No. Babies in Womb: 1 Attempted: No Labor Anesthesia: Epidural LABOR INFORMATION Reason for Induction: Not Applicable Onset of Labor: 11/24/2018 10:00 Complete Dilatation: 11/25/2018 13:18 Group B Beta Strep: Negative Antibiotics # of Doses: 0 Steroids Given: None Reason Steroids Not Administered: Not Applicable MEMBRANES Membranes Rupture Method: Artificial Rupture of Membranes: 11/25/2018 08:58 Length of Rupture (hr): 4.62 Amniotic Fluid Color: Clear Amniotic Fluid Amount: Large Amniotic Fluid Odor: Normal STAGES OF LABOR Stage 1 hr: 27 Stage 1 min: 18 Stage 2 hr: 0 Stage 2 min: 17 Stage 3 hr: 0 Stage 3 min: 3 Total Time in Labor hr: 27 Total Time in Labor min: 38 VAGINAL DELIVERY Laceration Extension: First Degree Laceration Type: Perineal Laceration Repair: Yes Initial Vag Sponge Count: 10 Final Vag Sponge Count: 10 Initial Vag Sharps Count: 1 Final Vag Sharps Count: 2 Sponge Count Correct: Yes; Vaginal Sweep Performed Sharps Count Correct: Yes Count Comment: 1 sharp added BABY A INFORMATION Delivery Date/Time: 11/25/2018 13:35 Method of Delivery: Vaginal Born in Route : No : N/A Forceps: N/A Vacuum Extraction: N/A Shoulder Dystocia : N/A SHOULDER DYSTOCIA BABY A Infant Delivery Date/Time: 11/25/2018 13:35 PRESENTATION/POSITION BABY A Presentation: Cephalic Cephalic Presentation: Vertex Vertex Position: Left Occipital Anterior Breech Presentation: N/A PLACENTA INFORMATION BABY A Placenta Delivery Time : 11/25/2018 13:38 Placenta Method of Delivery: Spontaneous Placenta Status: Delivered SCORES BABY A Heart Rate 1 min: >100 bpm Resp Effort 1 min: Good Cry Reflex Irritability 1 min: Cough/Sneeze/Pulls Away Muscle Tone 1 min: Active Motion Color 1 min: Body [place], Extremit Blue Resuscitation Effort 1 min: Tactile Stimulation SCORE 1 MIN: 9 Heart Rate 5 min: >100 bpm Resp Effort 5 min: Good Cry Reflex Irritability 5 min: Cough/Sneeze/Pulls Away Muscle Tone 5 min: Active Motion Color 5 min: Body [place], Extremit Blue SCORE 5 MIN: 9 INFANT INFORMATION BABY A Gestational Age at Delivery: 39.3 Gestational Status: Full Term- 39- 40.6 Weeks Outcome : Liveborn, with signs of life Infant Condition : Stable Sex: Male IDENTIFICATION/MEDS BABY A ID Band Number: [id number] ID Band Location: Right Leg; Left Arm Sensor Applied: Yes Sensor Number: [id number] Sensor Location : Cord Clamp WEIGHT/LENGTH BABY A Birthweight (gm): 3240 Weight (lb): 7 Weight (oz): 2 Infant Length (in): 19.00 Infant Length (cm): 48.26 CORD INFORMATION BABY A No. Cord Vessels: 3 Nuchal Cord : N/A Banking/Donate Info: n/a Suction: Mouth; Nose ASSESSMENT BABY A Complications: None Physical Findings at Delivery: Within Normal Limits Respirations: Appears Normal Furrier Designer/ALS Called : No Infant Care By: alberto salmon Transferred To: Remains with Mother
== END 2018-11-27 16:30 | disposition home or self-care (01) | DRG 807 ==
LOC: L-D 18:37 → OBT 18:37 → L-D 19:51 → OBT 20:06 → L-D 20:10 → PP1 11-25 15:22
PROVIDERS: ADMIT Obstetrics & Gynecology; ATTEND Obstetrics & Gynecology
PROC: 10E0XZZ Delivery of Products of Conception, External Approach (ICD-10-PCS; principal; 2018-11-25)
PROC: 0HQ9XZZ Repair Perineum Skin, External Approach (ICD-10-PCS; 2018-11-25)
DX: O70.9 Perineal laceration during delivery, unspecified (principal); Z37.0 Single live birth; O90.81 Anemia of the puerperium; D64.9 Anemia, unspecified; Z3A.39 39 weeks gestation of pregnancy
CPT/HCPCS: 62322; 76818; 80307; 82728; 83020; 83540; 85014; 85018; 85025; 85610; 85730; 86592; 86850; 86900; 86901; 87340; 90716; G0463; J0595; J1050; J2590; J2916; J3010; J3420; J7120